=== PATIENT | male | born 1965 | race Caucasian/White ===

== ENCOUNTER 2019-03-03 23:45 | Emergency (ER) | payer MEDICAID, OTHER ==
[~2019-03-03] VITALS: Ht 172.7 cm; Wt 101.6 kg
[2019-03-04] MEDS ORDERED: HYDROcodone/acetaminophen 10/325mg tab PO ONE ×2 (00:15→02:15)
--- NOTE | 2019-03-04 00:42 | NUR ---
dr. esteves at bedside. pts just given norco . pt reports pain is severe. bp 200/118. pts girlfriend at bedside.
[2019-03-04] MEDS ORDERED: ceFAZolin 1000mg inj IV ONE (01:05)
[2019-03-04] MEDS ORDERED: LIDOcaine 1% 30ml preserv. free vial IJ ONE (01:05)
[2019-03-04] MEDS ORDERED: gentamicin in saline, iso-osm 80 MG/50 ML premix IV ONE (01:05)
[2019-03-04] MEDS ORDERED: TETanus/Pertussis (Acell)/Diphther VAC/PF (Tdap-Adult) 0.5ml syringe IM ONE (01:05)
--- NOTE | 2019-03-04 01:09 | NUR ---
lidocaine bloock to left thumb. after 10 min pt reports miniimal pain. piv in place per md request.
[2019-03-04] MEDS ORDERED: gentamicin inj 80 MG in normal saline 100ml IV soln 100 ML IV ONE (01:15)
[2019-03-04] MEDS ORDERED: ceFAZolin 1GM/D5W- ADD-VANTAGE 50 ML IV ONE ×2 (01:15)
[2019-03-04] MEDS ORDERED: CEPH-572 PO (02:07)
[2019-03-04] MEDS ORDERED: HYDR-4353 PO (02:07)
[2019-03-04] MEDS ORDERED: ONDA4TAB6 PO (02:07)
[2019-03-04] MEDS ORDERED: ondansetron 4mg rapidly disintigrating tab PO ONE (02:15)
--- NOTE | 2019-03-04 02:55 | NUR ---
pt needs certified orthotist/pedorthist to place ortho glass thumb spika splint. wound cleaned and bacitracin applied. given zofran and norco. prepared for dc after splinting
[2019-03-04 02:56] VITALS: BP 174/92
== END 2019-03-04 03:46 | disposition home or self-care (01) ==
LOC: ER 23:46
DX: S61.032A Puncture wound without foreign body of left thumb without damage to nail, initial encounter (principal); F17.200 Nicotine dependence, unspecified, uncomplicated; F12.90 Cannabis use, unspecified, uncomplicated; Z98.890 Other specified postprocedural states; Z79.2 Long term (current) use of antibiotics; Z79.899 Other long term (current) drug therapy; W29.4XXA Contact with nail gun, initial encounter; Y93.89 Activity, other specified; Y92.89 Other specified places as the place of occurrence of the external cause; Y99.8 Other external cause status
CPT/HCPCS: 29125; 73130; 90471; 90715; 96365; 96368; 99283; J0690; J1580; J2405

== ENCOUNTER 2024-08-13 14:13 | Emergency (ER) | payer MEDICAID ==
[~2024-08-13] VITALS: Ht 175.3 cm; Wt 100.0 kg
[~2024-08-13 14:13] MED LIST: ONDA4TAB6 PO
[2024-08-13] MEDS ORDERED: IBUP-1984 PO (15:49)
[2024-08-13] MEDS ORDERED: AMOX-580 PO (15:49)
[2024-08-13 16:04] VITALS: BP 156/82; PULSE 95; RESP 16; TEMP 98; O2SAT 97
== END 2024-08-13 16:10 | disposition home or self-care (01) ==
LOC: ER 14:14
DX: K04.7 Periapical abscess without sinus (principal); K02.9 Dental caries, unspecified; I10 Essential (primary) hypertension; J44.9 Chronic obstructive pulmonary disease, unspecified; F12.90 Cannabis use, unspecified, uncomplicated; Z79.899 Other long term (current) drug therapy
CPT/HCPCS: 99283

== ENCOUNTER 2024-11-25 14:34 | Outpatient (CLI) | payer MEDICAID ==
[2024-11-25 15:00] LABS: BASOPHILS # (AUTO) 0.1 X10'3 (0-0.2); BASOPHILS % (AUTO) 1.3 % (0-1); EOSINOPHILS # (AUTO) 0.2 X10'3 (0-0.9); EOSINOPHILS % (AUTO) 2.8 % (0-6); HEMOGLOBIN 17.9 g/dl (14.0-17.9); LYMPHOCYTES # (AUTO) 2.8 X10'3 (1.1-4.8); LYMPHOCYTES % (AUTO) 33.2 % (21-51); MEAN CORPUSCULAR HEMOGLOBIN 29.8 PG (27.0-31.0); MEAN CORPUSCULAR HGB CONC 33.2 g/dL (33.0-36.5); MEAN CORPUSCULAR VOLUME 89.7 FL (78-98); MEAN PLATELET VOLUME 8.2 FL (7.4-10.4); MONOCYTES # (AUTO) 0.6 X10'3 (0-0.9); MONOCYTES % (AUTO) 6.9 % (2-12); NEUTROPHILS # (AUTO) 4.7 X10'3 (1.8-7.7); NEUTROPHILS % (AUTO) 55.8 % (42-75); PLATELET COUNT 301 X10'3 (140-440); RED BLOOD COUNT 6.01 X10'6 (4.70-6.10); RED CELL DISTRIBUTION WIDTH 13.9 % (11.5-14.5); WHITE BLOOD COUNT 8.4 X10'3 (4.5-11.0)
[2024-11-25 15:27] LABS: ALANINE AMINOTRANSFERASE 57 U/L (12-78); ALBUMIN 3.6 G/DL (3.4-5.0); ALBUMIN/GLOBULIN RATIO 0.8 (1.1-1.5); ALKALINE PHOSPHATASE 120 IU/L (46-116); ANION GAP 9 (8-16); ASPARTATE AMINO TRANSFERASE 32 U/L (10-37); BILIRUBIN,TOTAL 0.5 MG/DL (0.1-1.0); BLOOD UREA NITROGEN 18 MG/DL (7-18); BUN/CREATININE RATIO 11.9 (10.0-20.0); CALCIUM 9.1 MG/DL (8.5-10.1); CHLORIDE 105 MMOL/L (99-107); CHOL/HDL RATIO 2.8 (0.00-4.99); CHOLESTEROL 176 MG/DL (0-200); CREATININE 1.51 MG/DL (0.60-1.10); GLUCOSE 130 MG/DL (70-104); HDL CHOLESTEROL 62 MG/DL (35-60); LDL CHOLESTEROL 101 MG/DL (50-100); POTASSIUM 3.9 MMOL/L (3.5-5.1); SODIUM 142 MMOL/L (135-145); THYROID STIMULATING HORMONE 3.82 ulU/ml (0.34-4.50); TOTAL CARBON DIOXIDE 28.2 MMOL/L (24-32); TOTAL PROTEIN 8.4 G/DL (6.4-8.2); TRIGLYCERIDES 87 MG/DL (20-135); eGFR 47 ML/MIN
== END 2024-11-25 23:59 | disposition home or self-care (01) ==
LOC: RAD 14:34
PROVIDERS: ATTEND Nurse Practitioner Family
DX: E11.9 Type 2 diabetes mellitus without complications (principal); R53.81 Other malaise
CPT/HCPCS: 36415; 80053; 80061; 82306; 82607; 82746; 84443; 85025